=== PATIENT | male | born 1995 | race Two or more races ===

== ENCOUNTER 2017-07-19 18:38 | Emergency (ER) | payer SELFPAY ==
[2017-07-19] MEDS ORDERED: ONDANSETRON HCL INJ/PF 4 MG/2 ML SDV IV ONE (20:21)
[2017-07-19] MEDS ORDERED: NORMAL SALINE 1000 ML 1,000 ML IV ONE (20:21)
[2017-07-19 20:24] LABS: ABSOLUTE BASOPHILS # (AUTO) 0.1 10^3/uL (0.0-0.2); ABSOLUTE EOSINOPHILS # (AUTO) 0.3 10^3/uL (0.0-0.6); ABSOLUTE LYMPHOCYTES (AUTO) 2.1 10^3/uL (0.5-4.7); ABSOLUTE MONOCYTES (AUTO) 1.1 10^3/uL (0.1-1.4); ABSOLUTE NEUT (AUTO) 6.1 10^3/uL (1.7-8.2); BASOPHILS % (AUTO) 0.6 % (0-2); EOSINOPHILS % (AUTO) 3.1 % (0-6); HEMATOCRIT 44.5 % (37.9-51.0); HEMOGLOBIN 15.8 g/dL (13.5-17.0); HGB HCT DIFFERENCE 2.9; LYMPHOCYTES % (AUTO) 21.7 % (13-45); MEAN CORPUSCULAR HEMOGLOBIN 31.9 pg (27.0-33.4); MEAN CORPUSCULAR HGB CONC 35.5 g/dL (32.0-36.0); MEAN CORPUSCULAR VOLUME 90 fl (80-97); MONOCYTES % (AUTO) 11.2 % (3-13); RED BLOOD COUNT 4.95 10^6/uL (4.35-5.55); RED CELL DISTRIBUTION WIDTH 12.8 % (11.5-14.0); SEGMENTED NEUTROPHILS % (AUTO) 63.4 % (42-78); WHITE BLOOD COUNT 9.6 10^3/uL (4.0-10.5)
[2017-07-19 20:41] LABS: ALANINE AMINOTRANSFERASE 59 U/L (21-72); ALBUMIN 4.3 g/dL (3.5-5.0); ALKALINE PHOSPHATASE 69 U/L (38-126); ANION GAP 11 (5-19); ASPARTATE AMINO TRANSFERASE 33 U/L (17-59); BILIRUBIN,DIRECT 0.2 mg/dL (0.0-0.4); BILIRUBIN,TOTAL 0.3 mg/dL (0.2-1.3); BLOOD UREA NITROGEN 9 mg/dL (7-20); CALCIUM 9.8 mg/dL (8.4-10.2); CARBON DIOXIDE 31 mmol/L (22-30); CHLORIDE 102 mmol/L (98-107); CREATININE RESULT 0.78 mg/dL (0.52-1.25); GLUCOSE 113 mg/dL (75-110); POTASSIUM 4.2 mmol/L (3.6-5.0); SODIUM 143.6 mmol/L (137-145); TOTAL PROTEIN 7.1 g/dL (6.3-8.2)
--- NOTE | 2017-07-19 21:41 | ER Document Report ---
ED General - General Chief Complaint: Vomiting Stated Complaint: VOMITING Time Seen by Provider: 07/19/17 20:20 Notes: Patient is a 22-year-old male with a past medical history who presents with 3 days of nausea, vomiting, and abdominal cramping. Patient reports that he has had difficulty tolerating oral intake since onset of the symptoms when his vomiting persisted he decided to come to the emergency department today for further assessment. He denies a history of similar symptoms in the past. Nothing improves or worsens his symptoms. He has not seen his primary doctor regarding today's concerns. He notes he has had some soft stools today. He also notes that he has had a dry, nonproductive cough. No fever. TRAVEL OUTSIDE OF THE [place] IN LAST 30 DAYS: No - Related Data Allergies/Adverse Reactions: ibuprofen [Ibuprofen] Allergy (Verified 07/31/16 22:27) Facial swelling Past Medical History - General Information source: Patient - Social History Smoking Status: Never Smoker Cigarette use (# per day): No Frequency of alcohol use: None Drug Abuse: None Lives with: Parents Family History: Reviewed & Not Pertinent Pulmonary Medical History: Denies: Hx Tuberculosis Neurological Medical History: Reports: Hx Migraine Psychiatric Medical History: Reports: Hx Attention Deficit Hyperactivity Disorder Past Surgical History: Reports: Hx Herniorrhaphy - Left inguinal hernia repair ., Hx Urinary Tract Surgery - Drainage of left scrotal hematoma - Immunizations Hx Diphtheria, Pertussis, Tetanus Vaccination: Yes Review of Systems - Review of Systems Notes: Constitutional: Negative for fever. HENT: Negative for sore throat. Eyes: Negative for visual changes. Cardiovascular: Negative for chest pain. Positive for cough Respiratory: Negative for shortness of breath. Gastrointestinal: Positive for abdominal cramping, vomiting, diarrhea Genitourinary: Negative for dysuria. Musculoskeletal: Negative for back pain. Skin: Negative for rash. Neurological: Negative for headaches, weakness or numbness. 10 point ROS negative except as marked above and in HPI. Physical Exam - Vital signs Vitals: Temp Pulse Resp BP Pulse Ox 98.9 F 94 16 119/71 97 07/19/17 18:46 07/19/17 18:46 07/19/17 18:46 07/19/17 18:46 07/19/17 18:46 Interpretation: Normal Notes: PHYSICAL EXAMINATION: GENERAL: Well-appearing, well-nourished and in no acute distress. HEAD: Atraumatic, normocephalic. EYES: Pupils equal round and reactive to light, extraocular movements intact, sclera anicteric, conjunctiva are normal. ENT: nares patent, oropharynx clear without exudates. Moderately dry mucous membranes. NECK: Normal range of motion, supple without lymphadenopathy LUNGS: Breath sounds clear to auscultation bilaterally and equal. No wheezes rales or rhonchi. HEART: Regular rate and rhythm without murmurs ABDOMEN: Soft, nontender, normoactive bowel sounds. No guarding, no rebound. No masses appreciated. EXTREMITIES: Normal range of motion, no pitting or edema. No cyanosis. NEUROLOGICAL: No focal neurological deficits. Moves all extremities spontaneously and on command. PSYCH: Normal mood, normal affect. SKIN: Warm, Dry, normal turgor, no rashes or lesions noted. Course - Re-evaluation Re-evalutation: 07/19/17 21:39 Presentation of an overall well-appearing patient in no acute distress with complaints of nausea, vomiting, diarrhea. This is consistent with likely viral gastroenteritis. Patient has no abdominal tenderness on exam and specifically no tenderness in the RLQ, LLQ, RUQ. Overall well hydrated on exam. Able to tolerate oral intake here in the emergency department. Low clinical suspicion for any acute life-threatening etiology based on exam and history including acute cholecystitis, SBO, appendicitis, nephrolithiasis, or pylonephritis. CMP without evidence of acute hepatitis or significant dehydration. KUB was obtained as patient does have a history of a prior inguinal hernia repair to evaluate for possible obstruction. This is likewise negative and I have an overall very low clinical suspicion for this diagnosis patient is continued to have bowel movements, pass flatus, and has bowel sounds on exam. There is no tympany or distention on abdominal examination. At this time will discharge with return precautions and follow-up recommendations. Verbal discharge instructions given a the bedside and opportunity for questions given. Medication warnings reviewed. Patient is in agreement with this plan and has verbalized understanding of return precautions and the need for primary care follow-up in the next 24-72 hours. - Vital Signs Vital signs: Temp Pulse Resp BP Pulse Ox 98.9 F 78 20 112/75 98 07/19/17 18:46 07/19/17 22:55 07/19/17 22:55 07/19/17 22:55 07/19/17 22:55 - Laboratory Result Diagrams: 07/19/17 20:15 07/19/17 20:15 Laboratory results interpreted by me: 07/19/17 20:15 Carbon Dioxide 31 H Glucose 113 H - Diagnostic Test Radiology reviewed: Image reviewed, Reports reviewed Radiology results interpreted by me: 07/20/17 03:28 Abdominal x-ray: No evidence of obstruction or perforation Discharge - Discharge Clinical Impression: Persistent vomiting Condition: Good Disposition: HOME, SELF-CARE Additional Instructions: You have been seen in the Emergency Department (ED) today for nausea and vomiting. Your work up today has not shown a clear cause for your symptoms. You have been prescribed Zofran; please use as prescribed as needed for your nausea. Follow up with your doctor as soon as possible regarding today's emergent visit and your symptoms of nausea. Return to the Emergency Department (ED) if you develop abdominal pain, bloody vomiting, bloody diarrhea, if you are unable to tolerate fluids due to vomiting , or if you develop other symptoms that concern you. Forms: Return to Work
[2017-07-19] MEDS: ONDANSETRON ODT 4 MG TAB (6 TAB/DSPK) PO PRN ×2 (22:15→22:50)
[2017-07-19 22:18] LABS: APPEARANCE,URINE SLIGHTLY-CLOUDY; BILIRUBIN,URINE NEGATIVE (NEGATIVE); GLUCOSE, URINE NEGATIVE (NEGATIVE); KETONES,URINE NEGATIVE (NEGATIVE); LEUKOCYTE ESTERASE,URINE NEGATIVE (NEGATIVE); NITRITE,URINE NEGATIVE (NEGATIVE); PROTEIN,URINE NEGATIVE (NEGATIVE); URINE SPECIFIC GRAVITY 1.019; UROBILINOGEN,URINE NEGATIVE mg/dL (<2.0)
--- NOTE | 2017-07-19 22:35 | RADIOLOGY REPORT (SQ) ---
EXAM DESCRIPTION: KUB/ABDOMEN (SINGLE VIEW) COMPLETED DATE/TIME: 07/19/2017 10:13 pm REASON FOR STUDY: eval obstruction COMPARISON: None. NUMBER OF VIEWS: One view. TECHNIQUE: Supine radiographic image of the abdomen acquired. LIMITATIONS: None. FINDINGS: BOWEL GAS PATTERN: Normal bowel gas pattern. No dilated loops. CALCIFICATIONS: No suspicious calcifications. SOFT TISSUES: No gross mass or suggestion of organomegaly. HARDWARE: None in the abdomen. BONES: No acute fracture. No worrisome bone lesions. OTHER: No other significant finding. IMPRESSION: NO RADIOGRAPHIC EVIDENCE FOR ACUTE ABDOMINAL DISEASE. TECHNICAL DOCUMENTATION: JOB ID: [id number] [employer]- All Rights Reserved
[2017-07-19 22:57] VITALS: BP 112/75
== END 2017-07-19 22:55 | disposition home or self-care (01) ==
LOC: ER 18:38
DX: R11.2 Nausea with vomiting, unspecified (principal); R10.9 Unspecified abdominal pain; R19.7 Diarrhea, unspecified; R05 Cough
CPT/HCPCS: 99283; 96374; 36415; 83690; 85025; 80053; 81001; 74000; J2405

== ENCOUNTER 2017-10-04 02:50 | Emergency (ER) | payer SELFPAY ==
[2017-10-04 03:05] VITALS: BP 102/43
[2017-10-04] MEDS ORDERED: OXYCODONE-ACETAMINOPHEN 5-325 MG TABLET PO ONE (03:20)
--- NOTE | 2017-10-04 03:23 | ER Document Report ---
HPI - HPI Patient complains to provider of: Right foot pain Pain Level: 5 Context: Patient is a 22-year-old male comes emergency department for chief complaint of intense right foot pain that has progressively worsened over the night, he states it felt like a burning pain over the top of his foot first and then became so bad he felt like he could not walk on his foot. He denies injury or history of the same. He takes no daily medications, vaccinations up-to-date. Denies fever or chills. Only past medical history reported his inguinal hernia repair. - REPRODUCTIVE Reproductive: DENIES: : Past Medical History - General Information source: Patient - Social History Smoking Status: Never Smoker Frequency of alcohol use: None Drug Abuse: None Lives with: Family Family History: Reviewed & Not Pertinent Pulmonary Medical History: Denies: Hx Tuberculosis Neurological Medical History: Reports: Hx Migraine Renal/ Medical History: Denies: Hx Peritoneal Dialysis Psychiatric Medical History: Reports: Hx Attention Deficit Hyperactivity Disorder Past Surgical History: Reports: Hx Herniorrhaphy - Left inguinal hernia repair ., Hx Urinary Tract Surgery - Drainage of left scrotal hematoma - Immunizations Hx Diphtheria, Pertussis, Tetanus Vaccination: Yes Vertical Provider Document - CONSTITUTIONAL General Appearance: WD/WN, No Apparent Distress - INFECTION CONTROL TRAVEL OUTSIDE OF THE [place] IN LAST 30 DAYS: No - HEENT HEENT: Atraumatic, Normal ENT Exam, Normocephalic - NECK Neck: Normal Inspection - RESPIRATORY Respiratory: Breath Sounds Normal, No Respiratory Distress O2 Sat by Pulse Oximetry: 98 - CARDIOVASCULAR Cardiovascular: Regular Rate, Regular Rhythm - GI/ABDOMEN Gastrointestinal: Abdomen Soft, Abdomen Non-Tender - BACK Back: Normal Inspection - MUSCULOSKELETAL/EXTREMETIES Musculoskeletal/Extremeties: Tender - Patient with warmth over the dorsal proximal aspect of the right foot, no erythema or shiny appearance, no edema, area is very tender to palpation, range of motion of the ankle is intact, normal capillary refill and sensation, normal extremity otherwise. - NEURO Level of Consciousness: Awake, Alert, Appropriate - DERM Integumentary: Warm, Dry, No Rash Course - Re-evaluation Re-evalutation: Patient allergic to ibuprofen. He states he has facial swelling with it. Foot is not erythematous to suggest cellulitis, it is very tender over the top of his foot even with palpation, I asked patient and he does have strong family history of gout, he has had beer, red meat, and seafood recently. Normal range of motion of the ankle, I do not suspect septic joint. No wounds. No edema or lateral swelling suggesting clot. X-ray unremarkable. Exam is suggestive of gout. Placing patient on prednisone for treatment of this, providing pain medicine, discussed recommendations, referred to primary care, discussed return precautions, patient states satisfaction and agreement. - Vital Signs Vital signs: Temp Pulse Resp BP Pulse Ox 99.5 F 85 16 102/43 L 98 10/04/17 03:02 10/04/17 03:02 10/04/17 03:02 10/04/17 03:02 10/04/17 03:02 Discharge - Discharge Clinical Impression: Right foot pain Condition: Stable Disposition: HOME, SELF-CARE Additional Instructions: Your x-ray is normal. Your symptoms and examination are very suggestive of gout, I recommend he take the prednisone taper as prescribed to completion, take the pain medication if needed. Follow-up with primary care for additional evaluation and management ( see referrals). Return if you worsen including severe swelling, redness, pain, fever of 100.4 or greater, or any other concerning symptoms. See additional details below. Gout Gout is a problem caused by an excess of uric acid, a natural chemical found in the body. The cause of this disease is unknown. Gout arthritis occurs when crystals of uric acid form in the joints. The big toe is the most common joint involved, but any joint can become affected. Persons with gout may also form uric acid kidney stones, resulting in flank pain and blood in the urine. Nodules of uric acid may form under the skin. The first step of treatment is to decrease the inflammation in the joint with antiinflammatory medication. Medication to lower the uric acid level in the blood may then be prescribed. This medication should be taken regularly, as any sudden change in dosage may provoke an attack of gout. Some foods, such as red meat, can provoke an attack in some gout sufferers. Call the doctor if new symptoms arise, or if you do not improve. Gout Diet Changing your diet can decrease the uric acid in your blood. High levels of uric acid cause gouty arthritis and uric acid kidney stones. If you have gout , you should avoid meats that are high in purine. Meat products to avoid include liver, kidneys, and brains. In general, poultry is better than red meats. Seafoods to avoid include anchovies, sardines, chicas, mackerel, and scallops. In addition to limiting purine-rich foods, people with gout should limit protein intake to 10-15% of total calories. Carbohydrate intake should be around 50% of total daily calories. Limit fat intake to 30% of total daily calories. Cholesterol intake should be less than 300 mg/day. Maintain or achieve a healthy body weight. Weight loss should be gradual. Rapid weight loss can actually increase uric acid levels temporarily. Alcohol, especially beer, should be avoided. Get plenty of fluids. This dilutes urinary uric acid, and helps prevent uric acid kidney stones. Drink eight to twelve cups of water daily. Prescriptions: Morphine Sulfate [Morphine Ir 15 Mg Tablet] 15 mg PO Q4HP PRN #20 tablet PRN Reason: Prednisone 10 mg PO ASDIR PRN #28 tablet PRN Reason: Forms: Return to Work Referrals: [facility] [Provider Group] - Follow up as needed [facility] [Provider Group] - Follow up as needed
[2017-10-04] MEDS ORDERED: PROMETHAZINE HCL 25 MG TABLET PO ONE (03:24)
--- NOTE | 2017-10-04 03:42 | RADIOLOGY REPORT (SQ) ---
EXAM DESCRIPTION: FOOT RIGHT COMPLETE CLINICAL HISTORY: 22 years, Male, sharp pain, ? injury or gout COMPARISON: 02/12/15 NUMBER OF VIEWS: 3 LIMITATIONS: None. Findings: Bones, joints, and soft tissues of the right foot appear intact. IMPRESSION: No acute findings.
[2017-10-04] MEDS ORDERED: PREDNISONE 20 MG TABLET PO ONE (03:44)
== END 2017-10-04 04:06 | disposition home or self-care (01) ==
LOC: ER 02:50
DX: M79.671 Pain in right foot (principal)
CPT/HCPCS: 99283; 73630; J7512

== ENCOUNTER 2017-10-19 23:07 | Emergency (ER) | payer SELFPAY ==
[2017-10-20] MEDS ORDERED: NORMAL SALINE 1000 ML 1,000 ML IV ONE (00:21)
[2017-10-20 00:58] LABS: ABSOLUTE EOSINOPHILS # (AUTO) 0.1 10^3/uL (0.0-0.6); ABSOLUTE LYMPHOCYTES (AUTO) 2.7 10^3/uL (0.5-4.7); ABSOLUTE MONOCYTES (AUTO) 0.9 10^3/uL (0.1-1.4); ABSOLUTE NEUT (AUTO) 6.6 10^3/uL (1.7-8.2); BASOPHILS % (AUTO) 0.4 % (0-2); EOSINOPHILS % (AUTO) 1.2 % (0-6); HEMATOCRIT 48.4 % (37.9-51.0); HEMOGLOBIN 16.3 g/dL (13.5-17.0); LYMPHOCYTES % (AUTO) 26.2 % (13-45); MEAN CORPUSCULAR HEMOGLOBIN 31.2 pg (27.0-33.4); MEAN CORPUSCULAR HGB CONC 33.7 g/dL (32.0-36.0); MEAN CORPUSCULAR VOLUME 93 fl (80-97); MONOCYTES % (AUTO) 8.6 % (3-13); PLATELET COUNT 258 10^3/uL (150-450); RED BLOOD COUNT 5.23 10^6/uL (4.35-5.55); RED CELL DISTRIBUTION WIDTH 13.3 % (11.5-14.0); SEGMENTED NEUTROPHILS % (AUTO) 63.6 % (42-78); TOTAL CELLS COUNTED % (AUTO) 100 %; WHITE BLOOD COUNT 10.3 10^3/uL (4.0-10.5)
[2017-10-20 01:11] LABS: ANION GAP 10 (5-19); BLOOD UREA NITROGEN 12 mg/dL (7-20); CALCIUM 9.7 mg/dL (8.4-10.2); CARBON DIOXIDE 28 mmol/L (22-30); CHLORIDE 105 mmol/L (98-107); GLUCOSE 80 mg/dL (75-110); POTASSIUM 4.5 mmol/L (3.6-5.0); SODIUM 143.2 mmol/L (137-145)
[2017-10-20] MEDS ORDERED: FENTANYL CITRATE INJ/PF 100 MCG/2 ML AMPUL IV ONE (01:20)
--- NOTE | 2017-10-20 01:38 | ER Document Report ---
ED General - General Chief Complaint: Abdominal Pain Stated Complaint: ABDOMINAL PAIN Time Seen by Provider: 10/20/17 00:11 Notes: Patient is a 22-year-old male who presents with complaint of left lower quadrant left inguinal pain. Patient says feels very similar to when he needs surgery for a inguinal hernia approximately 3 years ago. Patient says he did feel a firm area there earlier. He says it does not feel as much as he did before. Denies any vomiting. No fevers. No bloody stools. Patient second complaint is of some pain in his right foot. He was diagnosed with gout placed on morphine as well as prednisone week ago. He says he felt much better and then today start walking and then got some redness in his foot started to flareup again. To the redness has since gone now that he has been sitting there. Denies any recent trauma or injuries to the foot. No other complaints. TRAVEL OUTSIDE OF THE [place] IN LAST 30 DAYS: No - Related Data Allergies/Adverse Reactions: ibuprofen [Ibuprofen] Allergy (Verified 10/19/17 23:13) Facial swelling Past Medical History - Social History Smoking Status: Never Smoker Frequency of alcohol use: None Drug Abuse: None Family History: Reviewed & Not Pertinent Pulmonary Medical History: Denies: Hx Tuberculosis Neurological Medical History: Reports: Hx Migraine Renal/ Medical History: Denies: Hx Peritoneal Dialysis Psychiatric Medical History: Reports: Hx Attention Deficit Hyperactivity Disorder Past Surgical History: Reports: Hx Herniorrhaphy - Left inguinal hernia repair ., Hx Urinary Tract Surgery - Drainage of left scrotal hematoma - Immunizations Hx Diphtheria, Pertussis, Tetanus Vaccination: Yes Review of Systems - Review of Systems Notes: My Normal Review Basic REVIEW OF SYSTEMS: CONSTITUTIONAL : Denies fever, chills, or sweats. Denies recent illness. EENT: Denies eye, ear, throat, or mouth pain or symptoms. Denies nasal or sinus congestion. CARDIOVASCULAR: Denies chest pain. RESPIRATORY: Denies cough, cold, or chest congestion. Denies shortness of breath, difficulty breathing, or wheezing. GASTROINTESTINAL: Some pain over left inguinal area. Denies nausea, vomiting, or diarrhea. Denies constipation. Last BM: MUSCULOSKELETAL: Right foot pain SKIN: Denies rash or skin lesions. NEUROLOGICAL: Denies altered mental status or loss of consciousness. Denies headache. Denies weakness or paralysis or loss of use of either side. Denies problems with gait or speech. Denies sensory or motor loss. ALL OTHER SYSTEMS REVIEWED AND NEGATIVE. Physical Exam - Vital signs Vitals: Temp Pulse Resp BP Pulse Ox 97.6 F 75 20 124/76 98 10/19/17 23:17 10/19/17 23:17 10/19/17 23:17 10/19/17 23:17 10/19/17 23:17 - Notes Notes: General Appearance: Well nourished, alert, cooperative, no acute distress, mild to moderate obvious discomfort. Vitals: reviewed, See vital signs table. Head: no swelling or tenderness to the head Eyes: PERRL, EOMI, Conjuctiva clear Mouth: No decreasd moisture Lungs: No wheezing, No rales, No rhonci, No accessory muscle use, good air exchange bilaterally. Heart: Normal rate, Regular rythm, No murmur, no rub Abdomen: Normal BS, soft, No rigidity, patient has a pinpoint area of tenderness it is over the left inguinal area and just superior to left inguinal area. It is right around his surgical scar. I push deeply I feel with may be a small fat type hernia. It is very difficult to tell on palpation alone. I do not feel an obvious well circumcised hernia or bowel type hernia., No guarding, no rebound, no abdominal masses, no organomegaly Extremities: strength 5/5 in all extremities, good pulses in all extremities, no swelling or tenderness in the extremities, no edema. Right foot has no redness or swelling to it. Is not hot or warm to touch. She is minimally tender over the dorsum and lateral aspect of the foot. Skin: warm, dry, appropriate color, no rash Neuro: speech clear, oriented x 3, normal affect, responds appropriately to questions. Course - Re-evaluation Re-evalutation: 10/20/17 05:15 Due to patient saying that this pain feels exactly like when he had a previous incarcerated inguinal hernia and also being that is very difficult to fully rule out hernia based on palpation and exam I did obtain CT scan. CT scan did not show any concerning findings. Suspect that he most likely has either hernia that reduce on its own or potentially has some tearing of scarring over the inguinal area. Patient is feeling improved and looks well. As for his foot pain, patient has not had any redness or swelling or signs of significant trauma to the foot. I do not think any further treatment other than his continue pain control at home as needed. Due to the pain over the underlying area of the surgical scar I will refer him to the surgery clinic. Encouraged him follow-up with them if he continues to have pain in this area. Encouraged to return to ER immediately for severe worsening pain, a lump or swelling over the area, fevers, blood in his stool, or if he feels unwell. Patient agrees with plan will be discharged home. Dictation of this chart was performed using voice recognition software; therefore, there may be some unintended grammatical errors. - Vital Signs Vital signs: Temp Pulse Resp BP Pulse Ox 98.0 F 77 18 122/79 100 10/20/17 03:50 10/20/17 03:50 10/20/17 03:50 10/20/17 03:50 10/20/17 03:50 - Laboratory Result Diagrams: 10/20/17 00:46 10/20/17 00:46 Discharge - Discharge Clinical Impression: Abdominal pain Qualifiers: Abdominal location: left lower quadrant Qualified Code(s): R10.32 - Left lower quadrant pain Condition: Good Disposition: HOME, SELF-CARE Additional Instructions: Please return to the ER if you develop severe worsening pain, blood in your stool, fevers, vomiting, or if you feel unwell. Your CT scan did not show evidence of a new hernia. Your pain could be related to a hernia that reduced or tearing of scar tissue from your previous surgeries. Dr. Ledbetter is the surgeon who now covers for your surgeon who did your surgery. You can follow up with them for reevaluation if you have continued pain or feel unwell. Forms: Return to Work Referrals: SERENA LEDBETTER MD [ACTIVE STAFF] - Follow up in 3-5 days
--- NOTE | 2017-10-20 02:53 | RADIOLOGY REPORT (SQ) ---
EXAM DESCRIPTION: CT ABD/PELVIS WITH IV ORAL CLINICAL HISTORY: 22 years Male, hx of left lower hernia COMPARISON: None. TECHNIQUE: 100 mL [id number] IV and oral contrast. Coronal and sagittal reformat. This exam was performed according to our departmental dose-optimization program, which includes automated exposure control, adjustment of the mA and/or kV according to patient size and/or use of iterative reconstruction technique. FINDINGS: No acute findings. No free fluid. Normal appendix. No significant hernia, as queried. Inferior thorax, liver, gallbladder, pancreas, spleen, adrenals, renal system, gastrointestinal tract, pelvic organs, lymphatics, vasculature, and musculoskeleton appear unremarkable. IMPRESSION: Normal contrast CT of the abdomen and pelvis.
[2017-10-20 03:51] VITALS: BP 122/79
== END 2017-10-20 03:50 | disposition home or self-care (01) ==
LOC: ER 23:07
DX: R10.32 Left lower quadrant pain (principal); M10.9 Gout, unspecified; M79.671 Pain in right foot; Z87.19 Personal history of other diseases of the digestive system; Z98.890 Other specified postprocedural states; Z88.6 Allergy status to analgesic agent
CPT/HCPCS: 99284; 96361; 96374; 36415; 85025; 80048; 74177; J3010; J7030

== ENCOUNTER 2018-02-02 21:52 | Emergency (ER) | payer SELFPAY ==
[2018-02-03] MEDS ORDERED: HALOPERIDOL LACTATE INJ 5 MG/1 ML VIAL IV ONE (00:57)
[2018-02-03] MEDS ORDERED: NORMAL SALINE 1000 ML 1,000 ML IV ONE (00:58)
[2018-02-03] MEDS ORDERED: DIPHENHYDRAMINE HCL 50 MG/ML VIAL IV ONE (01:40)
[2018-02-03 01:50] LABS: ALANINE AMINOTRANSFERASE 23 U/L (21-72); ALBUMIN 4.6 g/dL (3.5-5.0); ALKALINE PHOSPHATASE 57 U/L (38-126); ANION GAP 11 (5-19); ASPARTATE AMINO TRANSFERASE 29 U/L (17-59); BILIRUBIN,DIRECT 0.3 mg/dL (0.0-0.4); BILIRUBIN,TOTAL 0.7 mg/dL (0.2-1.3); BLOOD UREA NITROGEN 12 mg/dL (7-20); CALCIUM 9.4 mg/dL (8.4-10.2); CARBON DIOXIDE 33 mmol/L (22-30); CHLORIDE 103 mmol/L (98-107); GLUCOSE 89 mg/dL (75-110); POTASSIUM 4.3 mmol/L (3.6-5.0); SODIUM 146.5 mmol/L (137-145); TOTAL PROTEIN 7.4 g/dL (6.3-8.2)
[2018-02-03] MEDS ORDERED: ONDANSETRON ODT 4 MG TAB (6 TAB/ER DISP) PO PRN (01:50)
[2018-02-03 01:51] LABS: ABSOLUTE EOSINOPHILS # (AUTO) 0.1 10^3/uL (0.0-0.6); ABSOLUTE LYMPHOCYTES (AUTO) 2.6 10^3/uL (0.5-4.7); ABSOLUTE MONOCYTES (AUTO) 0.9 10^3/uL (0.1-1.4); ABSOLUTE NEUT (AUTO) 4.9 10^3/uL (1.7-8.2); BASOPHILS % (AUTO) 0.6 % (0-2); EOSINOPHILS % (AUTO) 1.5 % (0-6); HEMATOCRIT 45.6 % (37.9-51.0); HEMOGLOBIN 15.8 g/dL (13.5-17.0); LYMPHOCYTES % (AUTO) 30.1 % (13-45); MEAN CORPUSCULAR HEMOGLOBIN 31.7 pg (27.0-33.4); MEAN CORPUSCULAR HGB CONC 34.6 g/dL (32.0-36.0); MEAN CORPUSCULAR VOLUME 92 fl (80-97); MONOCYTES % (AUTO) 10.9 % (3-13); PLATELET COUNT 247 10^3/uL (150-450); RED BLOOD COUNT 4.97 10^6/uL (4.35-5.55); RED CELL DISTRIBUTION WIDTH 13.5 % (11.5-14.0); SEGMENTED NEUTROPHILS % (AUTO) 56.9 % (42-78); TOTAL CELLS COUNTED % (AUTO) 100 %; WHITE BLOOD COUNT 8.5 10^3/uL (4.0-10.5)
--- NOTE | 2018-02-03 01:51 | ER Document Report ---
ED General - General Chief Complaint: Nausea/Vomiting/Diarrhea Stated Complaint: COLD SYMPTOMS Time Seen by Provider: 02/03/18 00:53 Notes: Patient is a 22-year-old male without past medical history who presents with 24 hours of nausea, vomiting, diarrhea, body aches as well as headache. He states that his symptoms started gradually over the past 24 hours and have gotten progressively worse over that period time. He states that he has had difficulty tolerating any form of oral intake. Nothing improves or worsens his symptoms. He is uncertain of whether or not he has known sick contacts. He reports a history of similar symptoms in the past. He has not seen his general doctor regarding today's concerns. He notes that the headache feels like a typical migraine headache for him. It is a dull, throbbing, right temporal headache. Worsened by lights and sounds. He has not training to improve his headache. TRAVEL OUTSIDE OF THE [place] IN LAST 30 DAYS: No - Related Data Allergies/Adverse Reactions: ibuprofen [Ibuprofen] Allergy (Verified 10/19/17 23:13) Facial swelling Past Medical History - General Information source: Patient - Social History Smoking Status: Never Smoker Frequency of alcohol use: None Drug Abuse: None Family History: Reviewed & Not Pertinent Pulmonary Medical History: Denies: Hx Tuberculosis Neurological Medical History: Reports: Hx Migraine Renal/ Medical History: Denies: Hx Peritoneal Dialysis Psychiatric Medical History: Reports: Hx Attention Deficit Hyperactivity Disorder Past Surgical History: Reports: Hx Herniorrhaphy - Left inguinal hernia repair ., Hx Urinary Tract Surgery - Drainage of left scrotal hematoma - Immunizations Hx Diphtheria, Pertussis, Tetanus Vaccination: Yes Review of Systems - Review of Systems Notes: Constitutional: Negative for fever. HENT: Negative for sore throat. Eyes: Negative for visual changes. Cardiovascular: Negative for chest pain. Respiratory: Negative for shortness of breath. Gastrointestinal: Positive for nausea vomiting diarrhea Genitourinary: Negative for dysuria. Musculoskeletal: Negative for back pain. Skin: Negative for rash. Neurological: Positive for headache 10 point ROS negative except as marked above and in HPI. Physical Exam - Vital signs Vitals: Temp Pulse Resp BP Pulse Ox 98.8 F 66 18 123/62 98 02/02/18 22:12 02/02/18 22:12 02/02/18 22:12 02/02/18 22:12 02/02/18 22:12 Interpretation: Normal Notes: PHYSICAL EXAMINATION: GENERAL: Well-appearing, well-nourished and in no acute distress. HEAD: Atraumatic, normocephalic. EYES: Pupils equal round and reactive to light, extraocular movements intact, sclera anicteric, conjunctiva are normal. ENT: nares patent, oropharynx clear without exudates. Moderately dry mucous membranes. NECK: Normal range of motion, supple without lymphadenopathy LUNGS: Breath sounds clear to auscultation bilaterally and equal. No wheezes rales or rhonchi. HEART: Regular rate and rhythm without murmurs ABDOMEN: Soft, nontender, normoactive bowel sounds. No guarding, no rebound. No masses appreciated. EXTREMITIES: Normal range of motion, no pitting or edema. No cyanosis. NEUROLOGICAL: Face symmetric. Tongue protrudes midline. Extraocular motions intact. Pupils are 2 mm and equally reactive. Normal speech, normal gait. 5 out of 5 strength in both the distal and proximal upper and lower extremities bilaterally. Sensation is grossly intact throughout. Finger to nose testing normal. Pronator drift normal. PSYCH: Moderately anxious SKIN: Warm, Dry, normal turgor, no rashes or lesions noted. Course - Re-evaluation Re-evalutation: 02/03/18 01:30 Presentation of an overall well-appearing patient in no acute distress with complaints of nausea, vomiting, diarrhea. This is consistent with likely viral gastroenteritis. Patient has no abdominal tenderness on exam and specifically no tenderness in the RLQ, LLQ, RUQ. Overall well hydrated on exam. Able to tolerate oral intake here in the emergency department. Low clinical suspicion for any acute life-threatening etiology based on exam and history including acute cholecystitis, SBO, appendicitis, nephrolithiasis, or pylonephritis. Patient did also complain of a headache. Presentation of a headache that appears to be most consistent with tension versus migrainous type headache. Headache was not maximal in onset, patient has no focal neurologic deficits, no nuchal rigidity, vital signs within normal limits, no papilledema, and patient is overall well in appearance. Based on clinical history and examination I do not suspect an acute subarachnoid hemorrhage, dural venous sinus thrombosis, acute meningitis, or intercranial mass. Given my low clinical suspicion for any acute life-threatening etiology, I do not feel advanced neuro imaging is indicated at this time. Will proceed with IV haloperidol for the patient's migraine and persistent vomiting and then reassess 02/03/18 02:05 Patient has had improvement of his nausea and vomiting as well as his headache but remains extremely anxious after receiving haloperidol, appears to have akathisia's. He has received Benadryl without significant improvement. Will also give lorazepam at this time point as he is quite uncomfortable - Vital Signs Vital signs: Temp Pulse Resp BP Pulse Ox 98.8 F 66 18 123/62 98 02/02/18 22:12 02/02/18 22:12 02/02/18 22:12 02/02/18 22:12 02/02/18 22:12 - Laboratory Result Diagrams: 02/03/18 01:29 02/03/18 01:29 Laboratory results interpreted by me: 02/03/18 01:29 Sodium 146.5 H Carbon Dioxide 33 H Discharge - Discharge Clinical Impression: Multiple complaints, Nausea vomiting and diarrhea Migraine headache Qualifiers: Migraine type: unspecified Status migrainosus presence: without status migrainosus Intractability: not intractable Qualified Code(s): G43.909 - Migraine, unspecified, not intractable, without status migrainosus Condition: Good Disposition: HOME, SELF-CARE Additional Instructions: Your symptoms are likely due to a viral illness and should resolve in the next several days. You can take [id number] loperamide also known as Imodium as needed for diarrhea per box instructions. Continue to stay hydrated with plenty of solution such as Gatorade or Pedialyte. You are being prescribed Zofran to take as needed for nausea and vomiting. Please return if you develop severe abdominal pain, pass out, become unable to tolerate any oral fluids for 12 more hours, or any other symptoms that are concerning to you. Forms: Return to Work
[2018-02-03] MEDS ORDERED: LORAZEPAM INJ 2 MG/1 ML VIAL IV ONE (02:04)
[2018-02-03] MEDS ORDERED: LORAZEPAM INJ 2 MG/1 ML VIAL ONE (02:05)
[2018-02-03 08:41] VITALS: BP 112/65
== END 2018-02-03 08:56 | disposition home or self-care (01) ==
LOC: ER 21:52
DX: G43.909 Migraine, unspecified, not intractable, without status migrainosus (principal); R11.2 Nausea with vomiting, unspecified; R19.7 Diarrhea, unspecified; M79.1 Myalgia; Z88.6 Allergy status to analgesic agent
CPT/HCPCS: 99283; 96361; 96374; 96375; 36415; 85025; 80053; J1200; J1630; J2060; J7030

== ENCOUNTER 2018-07-15 20:42 | Emergency (ER) | payer SELFPAY ==
[2018-07-15 20:48] VITALS: BP 118/55
[2018-07-15] MEDS ORDERED: ONDANSETRON 4 MG TAB.RAPDIS PO ONE (21:29)
[2018-07-15] MEDS ORDERED: NORMAL SALINE 1000 ML 1,000 ML IV ONE (21:29)
[2018-07-15] MEDS ORDERED: ACETAMINOPHEN 325 MG TABLET PO ONE (21:29)
--- NOTE | 2018-07-15 21:35 | ER Document Report ---
HPI - HPI Patient complains to provider of: nausea, vomiting, diarrhea Time Seen by Provider: 07/15/18 20:59 Onset: Yesterday Onset/Duration: Sudden Quality of pain: Cramping Severity: Moderate Pain Level: 4 Context: 23-year-old male presents to the emergency department with "weak body feeling and feeling weird" that started this morning after eating at [employer] yesterday. He says he woke up this morning and drank a little bit of water then immediately vomited it. He then had dry heaves about 5 or 6 times and then diarrhea 3 times. He went to work and was sent home from work. He does endorse headache in which she did take BC powder for which did help but the headache has returned. He denies fever, chills, blood in stool, urinary symptoms. He endorses diaphoresis, body aches, abdominal cramping. Associated Symptoms: Nausea, Vomiting - CONSTITUTIONAL Constitutional: REPORTS: Fever, Chills - EENT EENT: REPORTS: Sore Throat - GASTROINTESTINAL Gastrointestinal: DENIES: Abdominal Pain, Black / Bloody Stools - REPRODUCTIVE Reproductive: DENIES: : Past Medical History - General Information source: Patient - Social History Smoking Status: Current Some Day Smoker Frequency of alcohol use: Social Drug Abuse: None Lives with: Family Family History: Reviewed & Not Pertinent Patient has suicidal ideation: No Patient has homicidal ideation: No Pulmonary Medical History: Denies: Hx Tuberculosis Neurological Medical History: Reports: Hx Migraine Renal/ Medical History: Denies: Hx Peritoneal Dialysis Psychiatric Medical History: Reports: Hx Attention Deficit Hyperactivity Disorder Past Surgical History: Reports: Hx Herniorrhaphy - Left inguinal hernia repair ., Hx Urinary Tract Surgery - Drainage of left scrotal hematoma - Immunizations Hx Diphtheria, Pertussis, Tetanus Vaccination: Yes Vertical Provider Document - CONSTITUTIONAL Agree With Documented VS: Yes Exam Limitations: No Limitations Notes: Reviewed vital signs and nursing note as charted by RN. CONSTITUTIONAL: Well-appearing, well-nourished, acting appropriately for age HEAD: Normocephalic, atraumatic, no swelling EYES: PERRL, Conjunctivae clear, no drainage, EOMI, no scleral icterus ENT: External ears without lesions, External auditory canal no rhinorrhea, Pharynx erythematous, no lesions, no tonsillar hypertrophy, airway patent, mucous membranes pink and moist NECK: Supple, no cervical lymphadenopathy, no masses CARD: Regular rate and rhythm, no murmurs, no rubs, no gallops, capillary refill < 2 seconds, symmetric pulses RESP: The lungs are clear to auscultation bilaterally, no wheezing, no rales, no rhonchi. Respiratory rate and effort are normal, normal chest excursion. No respiratory distress, no retractions, no stridor, no nasal flaring, no accessory muscle use. ABD/GI: Normal bowel sounds, non-distended, soft, non-tender, no rebound, no guarding, no palpable organomegaly EXT: Normal ROM in all joints, non-tender to palpation, no effusions, no edema SKIN: Normal color for age and race, warm, dry, good turgor, no acute lesions noted NEURO: No facial asymmetry, moves all extremities equally, motor and sensory function intact - INFECTION CONTROL TRAVEL OUTSIDE OF THE [place] IN LAST 30 DAYS: No Course - Re-evaluation Re-evalutation: 07/15/18 21:34 This is a 23-year-old healthy appearing male in no acute distress who presents to the emergency department for nausea, vomiting, diarrhea since this morning. He says the symptoms came on suddenly and he has had no changes in his lifestyle. He said he did go to [employer] yesterday with his girlfriend and ate dinner there. On exam, patient's abdomen was soft nondistended, bowel sounds normal, no evidence of surgical abdomen. His symptoms are consistent with a viral illness and plan is to hydrate him with IV fluids. He endorses headache so we will treat headache with Tylenol. 07/15/18 22:26 Reevaluated patient after receiving normal saline 1 L and Zofran 4 mg x1. He endorses feeling much better and is able to tolerate p.o. He drank a full cup of water without any nausea or vomiting. Discussed with the patient this is most likely a viral syndrome and he should rest for the next 48 hours with a soft diet. I will send him home with a Zofran rapid dispense pack. I explained to him return precautions. Stable for discharge home - Vital Signs Vital signs: Temp Pulse Resp BP Pulse Ox 98.7 F 75 18 118/55 L 96 07/15/18 20:45 07/15/18 20:45 07/15/18 20:45 07/15/18 20:45 07/15/18 20:45 Discharge - Discharge Clinical Impression: Stomach cramps, Viral gastroenteritis Condition: Good Disposition: HOME, SELF-CARE Instructions: Acetaminophen, Antinausea Medication ([facility]), Gastroenteritis ( adult) ([facility]) Additional Instructions: You were seen in the emergency department this evening for what is most likely a viral stomach illness.Gastroenteritis You most likely have gastroenteritis. This is an irritation of the stomach and intestinal tract. It's usually caused by a virus, but can also be caused by bacteria, toxins that cause food poisoning, or excessive alcohol intake. Symptoms may include fever, painful abdominal cramps, nausea, vomiting , and diarrhea. Start with small amounts (two to six ounces) of clear liquids (soft drinks , herb teas, broth, etc). Try to take fluids frequently even if you are vomiting, to prevent dehydration. When liquids are being consumed successfully , advance to small amounts of bland food (mashed potato, toast) for 6 - 12 hours. Gastroenteritis rarely requires medication. It goes away by itself. Use good handwashing so you don't spread germs. Wash underwear in very hot water. If symptoms are severe, talk to the doctor. Call your physician if blood appears in your vomitus or stool, if vomiting lasts longer than 24 hours, if the abdominal pain worsens or becomes localized to one area, or if you develop high fever. Forms: Return to Work
[2018-07-15] MEDS ORDERED: ONDANSETRON ODT 4 MG TAB (6 TAB/ER DISP) PO PRN (22:29)
== END 2018-07-15 22:43 | disposition home or self-care (01) ==
LOC: ER 20:42
DX: A08.4 Viral intestinal infection, unspecified (principal); R10.9 Unspecified abdominal pain; R11.2 Nausea with vomiting, unspecified; R19.7 Diarrhea, unspecified; R51 Headache; R50.9 Fever, unspecified; F17.200 Nicotine dependence, unspecified, uncomplicated
CPT/HCPCS: 99283; 96360; S0119; J7030

== ENCOUNTER 2018-08-13 22:05 | Emergency (ER) | payer BC ==
[2018-08-13 22:17] VITALS: BP 125/74
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
[2018-08-14] MEDS ORDERED: HYDROCODONE/ACETAMINOPHEN 5-325 MG TABLET PO ONE (00:51)
[2018-08-14] MEDS ORDERED: HYDROCODONE/ACETAMINOPHEN 5-325 MG (6 TAB/ER DISP) PO PRN (00:51)
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
== END 2018-08-14 02:42 | disposition home or self-care (01) ==
LOC: ER 22:05
DX: S62.339A Displaced fracture of neck of unspecified metacarpal bone, initial encounter for closed fracture (principal); W22.09XA Striking against other stationary object, initial encounter; Z88.6 Allergy status to analgesic agent
CPT/HCPCS: 99283

== ENCOUNTER 2018-08-29 00:34 | Emergency (ER) | payer BC ==
[2018-08-29 04:11] VITALS: BP 144/79
--- NOTE | 2018-08-29 04:32 | ER Document Report ---
HPI - HPI Patient complains to provider of: Epistaxis Time Seen by Provider: 08/29/18 04:26 Pain Level: 4 Context: Patient is a 23-year-old male presents to the emergency department complaining of generalized cough and congestion for the last couple of days. Patient states this evening he noted some bright red bleeding from his left naris. Patient states he did attempt to apply pressure for about 10 minutes. States at that point in time he intermittently was applying pressure and seeing if it was bleeding. Patient states every time he took the tissue away from his left nose he saw a scant amount of bright red blood today presents to the emergency room. Patient states the bleeding has since stopped 30 minutes prior to his arrival to the emergency room has not started bleeding again since. Past medical history: None Medications: None Allergies: Motrin, bees - REPRODUCTIVE Reproductive: DENIES: : - DERM Skin Color: Normal, [place] Past Medical History - General Information source: Patient - Social History Smoking Status: Unknown if Ever Smoked Family History: Reviewed & Not Pertinent Patient has suicidal ideation: No Patient has homicidal ideation: No Pulmonary Medical History: Denies: Hx Tuberculosis Neurological Medical History: Reports: Hx Migraine Renal/ Medical History: Denies: Hx Peritoneal Dialysis Psychiatric Medical History: Reports: Hx Attention Deficit Hyperactivity Disorder Past Surgical History: Reports: Hx Herniorrhaphy - Left inguinal hernia repair 09-25-13., Hx Urinary Tract Surgery - Drainage of left scrotal hematoma - Immunizations Hx Diphtheria, Pertussis, Tetanus Vaccination: Yes Vertical Provider Document - CONSTITUTIONAL Agree With Documented VS: Yes Notes: GENERAL: Alert, interacts well. No acute distress. Conjunctival palpebral pink HEAD: Normocephalic, atraumatic. EYES: Pupils equal, round, and reactive to light. Extraocular movements intact. ENT: Oral mucosa moist, tongue midline. Nares patent, no nasal septal hematoma, TM's intact, nonerythematous, nonbulging bilaterally. Pharynx within normal limits, no palatal petechiae noted NECK: Full range of motion. Supple. Trachea midline. LUNGS: Clear to auscultation bilaterally, no wheezes, rales, or rhonchi. No respiratory distress. HEART: Regular rate and rhythm. No murmur ABDOMEN: Soft, non-tender. Non-distended. Bowel sounds present in all 4 quadrants. EXTREMITIES: Moves all 4 extremities spontaneously. No edema, normal radial and dorsalis pedis pulses bilaterally. No cyanosis. BACK: no cervical, thoracic, lumbar midline tenderness. No saddle anesthesia, normal distal neurovascular exam. NEUROLOGICAL: Alert and oriented x3. Normal speech. cranial nerves II through XII grossly intact PSYCH: Normal affect, normal mood. SKIN: Warm, dry, normal turgor. No rashes or lesions noted. - INFECTION CONTROL TRAVEL OUTSIDE OF THE [place] IN LAST 30 DAYS: No Course - Re-evaluation Re-evalutation: 08/29/18 04:30 Patient has had no epistaxis upon his arrival to the emergency room. no pallor noted on patient exam, no history of bleeding disorders for the patient or his immediate family. Discussed close follow-up with his primary care provider and return to the emergency room precautions. 08/29/18 04:33 Patient's denying lightheadedness, dizziness, any complaints at this time. - Vital Signs Vital signs: Temp Pulse Resp BP Pulse Ox 98.3 F 64 14 126/84 H 98 08/29/18 00:46 08/29/18 04:04 08/29/18 04:04 08/29/18 04:04 08/29/18 04:04 Discharge - Discharge Clinical Impression: Epistaxis Condition: Stable Disposition: HOME, SELF-CARE Additional Instructions: You have been seen and treated in the emergency department for bloody nose. At this time your nose is not bleeding. At this time he appears well-hydrated and stable for discharge. Please return to the emergency room for any other concerning symptoms.
== END 2018-08-29 04:43 | disposition home or self-care (01) ==
LOC: ER 00:34
DX: R04.0 Epistaxis (principal); R05 Cough; Z88.6 Allergy status to analgesic agent; Z91.030 Bee allergy status
CPT/HCPCS: 99283